=== PATIENT | male | born 1960 | race Caucasian/White ===

== ENCOUNTER 2020-03-29 10:55 | Observation (INO) ==
[~2020-03-29 10:55] MED LIST: Buffered Lidocaine 1% SYRIN 1 ml INTRADERM ONE; Famotidine IV 10 MG/ML 2 ml VIAL (20 mg) IV ONE; Lactated Ringers 1000 ml BAG 1,000 ML IV SCH
[2020-03-29] MEDS ORDERED: Famotidine IV 10 MG/ML 2 ml VIAL (20 mg) ONE (11:37)
[2020-03-29] MEDS ORDERED: Midazolam 5 mg/5 ml VIAL 1 mg/ml 5 ml VIAL (5 mg) ONE (13:16)
[2020-03-29] MEDS ORDERED: Propofol 10 MG/ML 20 ML BTL ONE (13:16)
[2020-03-29] MEDS ORDERED: fentaNYL 100 mcg/2 ml 50 MCG/ML VIAL ONE (13:16)
[2020-03-29] MEDS ORDERED: Lidocaine 2% PF 5 ML VIAL ONE (13:16)
[2020-03-29] MEDS ORDERED: Dexamethasone IV 4 MG/ML VIAL 1 ml VIAL ONE (13:16)
[2020-03-29] MEDS ORDERED: Ondansetron 4 mg VIAL 2 MG/ML 2 ml VIAL ONE (13:16)
[2020-03-29] MEDS ORDERED: EPHEDrine (Pressors) 50 MG/ML VIAL ONE (14:47)
[2020-03-29] MEDS ORDERED: Morphine 2 MG/ML SYRINGE IV PRN ×2 (15:54→16:34)
[2020-03-29] MEDS ORDERED: Ondansetron ODT 4 mg TAB 4 MG TAB SL PRN (15:56)
[2020-03-29] MEDS ORDERED: Nicotine GUM 4MG FRUIT FLAVOR PO PRN (16:35)
[2020-03-29] MEDS: NS 0.9% 1000 ml BAG 1,000 ML IV SCH (16:58)
[2020-03-30] MEDS: NS 0.9% 1000 ml BAG 1,000 ML IV SCH (04:12)
[2020-03-30 06:27] LABS: ABS Lymphocytes 0.7 10^3/ul (1.0-4.8); ABS Monocytes 0.4 10^3/ul (0-0.8); ABS Neutrophils 10.2 10^3/ul (1.5-7.7); Hematocrit 41 % (42-52); Hemoglobin 13.7 g/dL (14.0-18.0); Lymphocyte % 6.3 %; Mean Corpuscular HGB Conc 33 g/dL (31-36); Mean Corpuscular Hemoglobin 31 pg (27-31); Mean Corpuscular Volume 93 fL (80-94); Mean Platelet Volume 7.5 fL (7.4-10.4); Platelet Count 273 10^3/uL (150-450); Red Blood Count 4.44 10^6 /uL (4.18-5.48); Red Cell Distribution Width 15 % (10-15); White Blood Count 11.3 10^3/uL (3.5-10.8)
[2020-03-30 06:48] LABS: Albumin 3.5 g/dL (3.2-5.2); Albumin/Globulin Ratio 1.6 (1-3); BUN/Creatinine Ratio 22.4 (8-20); Calcium 8.8 mg/dL (8.6-10.3); EGFR African American 93.8 (>60); EGFR Non-African American 77.5 (>60); Globulin 2.2 g/dL (2-4); Potassium 4.2 mmol/L (3.5-5.0); Total Bilirubin 0.8 mg/dL (0.2-1.0); Total Protein 5.7 g/dL (6.4-8.9)
[2020-03-30 08:09] VITALS: BP 134/73
== END 2020-03-30 12:00 | disposition home or self-care (01) ==
LOC: SSU 10:55 → OR 10:55
PROVIDERS: ADMIT Internal Medicine Hematology & Oncology; ATTEND Internal Medicine Hematology & Oncology
PROC: O.GIPEG (2020-03-29 13:45)